=== PATIENT | male | born 1985 | race Caucasian/White ===

== ENCOUNTER 2021-09-18 12:20 | Emergency (ER) | payer SELFPAY ==
[~2021-09-18] VITALS: Ht 172 cm; Wt 86.0 kg
[~2021-09-18 12:20] MED LIST: CLIN-62 PO; CLIN150C20 PO; NFCHLORHGL MM
[2021-09-18] MEDS ORDERED: ACHD5005 PO (12:51)
[2021-09-18] MEDS ORDERED: DOXY100T2 PO (12:51)
--- NOTE | 2021-09-18 12:53 | ED Integumentary General ---
General Chief Complaint: Skin/Wound Problems Stated Complaint: L BUTTOCKS CYST Nursing Triage Note: PT ARRIVES TO ER WITH C/O L BUTTOCK ABSCESS. PT HAS NEVER HAD THIS BEFORE Source: patient Exam Limitations: no limitations History of Present Illness Date Seen by Provider: Sep 18, 2021 Time Seen by Provider: 12:52 Initial Comments To ER with a left buttock abscess for 3 to 4 days no fevers or chills. Timing/Duration: constant Severity: moderate Possible Cause: no cause identified Associated Symptoms: denies symptoms Allergies and Home Medications Allergies Coded Allergies: Penicillins (Unverified Allergy, Mild, UNKNOWN, 02/20/09) shellfish derived (Verified Allergy, Unknown, Shortness of Breath, 09/18/21) Patient Home Medication List Home Medication List Reviewed: Yes Chlorhexidine Gluconate (Chlorhexidine Gluconate) 473 Ml Mouthwash, 15 ML MM BID Prescribed by: ISMA SU on 07/02/18 035 Clindamycin HCl (Clindamycin HCl) 150 Mg Capsule, 450 MG PO TID Prescribed by: ISMA SU on 07/02/18351 Clindamycin Hcl (Cleocin Cap) 150 Mg Cap, 2 EACH PO QID Prescribed by: DARIEL BONILLA on 07/28/12 1752 Review of Systems Review of Systems Constitutional: see HPI EENTM: see HPI Respiratory: no symptoms reported Cardiovascular: no symptoms reported Genitourinary: no symptoms reported Musculoskeletal: no symptoms reported Skin: see HPI Psychiatric/Neurological: No Symptoms Reported Endocrine: No Symptoms Reported Hematologic/Lymphatic: No Symptoms Reported Past Blthmml-Cjvynz-Wfbzxc Hx Patient Social History Tobacco Use?: Yes Tobacco type used: Cigarettes Smoking Status: Current Everyday Smoker Substance use?: Yes Substance type: Marijuana Substance frequency: Couple times a week Alcohol Use?: Yes Alcohol type: Hard Liquor Alcohol Frequency: Once in a while Pt feels they are or have been: No Immunizations Up To Date Tetanus Booster (TDap): Unknown PED Vaccines UTD: Yes Influenza Vaccine Up-to-Date: No; Not Current First/Initial COVID19 Vaccinat: JUL 2021 Second COVID19 Vaccination Jose Roberto: AUGUST 2021 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: [employer] Seasonal Allergies Seasonal Allergies: No Past Medical History Surgeries: No Respiratory: No Cardiac: No Neurological: No Genitourinary: No Gastrointestinal: No Musculoskeletal: No Endocrine: No HEENT: No Cancer: No Psychosocial: No Integumentary: No Blood Disorders: No Physical Exam Vital Signs Vital Signs - First Documented 09/18/21 12:32 Temp 36.1 Pulse 98 Resp 18 B/P (MAP) 150/90 (110) Pulse Ox 98 O2 Delivery Room Air Capillary Refill : Less Than 3 Seconds General Appearance: WD/WN, no apparent distress Neck: non-tender, full range of motion Cardiovascular: regular rate, rhythm, no murmur Respiratory: normal breath sounds, no respiratory distress, no accessory muscle use Gastrointestinal: normal bowel sounds, non tender, soft Extremities: normal range of motion, non-tender Neurologic/Psychiatric: alert, normal mood/affect, oriented x 3 Skin: normal color, warm/dry, other (Large fluctuant abscess to the left side of the buttock. About 10 cm of erythema with the center of this about 4 cm of fluctuance. This was anesthetized with 1 mL of 1% lidocaine with epinephrine. Incision made with 11 blade scalpel about 1 cm in length. Large amount of purulent material was expressed. Cavity was then probed with a sterile Q-tip. Cavity was then irrigated with saline. Culture collected. Wound packed with quarter inch iodoform gauze and covered with plain gauze.) Skin Problem Character: abscess Progress/Results/Core Measures Results/Orders My Orders Orders - AYSE BRADEN APRN Wound Culture (09/18/21 12:47) Doxycycline Hyclate Tablet (Vibramycin T (09/18/21 13:00) Hydrocodone/Apap 5/325 Tablet (Lortab 5 (09/18/21 13:00) Vital Signs/I&O 09/18/21 12:32 Temp 36.1 Pulse 98 Resp 18 B/P (MAP) 150/90 (110) Pulse Ox 98 O2 Delivery Room Air Blood Pressure Mean: 110 Departure Impression Primary Impression: Abscess Disposition: 01 HOME, SELF-CARE Condition: Stable Departure-Patient Inst. Decision time for Depature: 12:48 Referrals: NO,LOCAL PHYSICIAN (PCP/Family) Primary Care Physician Patient Instructions: Abscess Incision and Drainage (DC) Add. Discharge Instructions: 1. You can shower and bathe. You can let water get on this. If the packing falls out on its own then simply leave it out. However, if it stays and then simply remove it by pulling on it sometime Monday morning. Change the gauze dressing overlying this as needed as it will continue to ooze blood and pus. Pain medication and antibiotic as directed. Return to ER for any concerns. All discharge instructions reviewed with patient and/or family. Voiced understanding. Scripts Hydrocodone/Acetaminophen (Hydrocodone-Acetamin 5-325 mg) 1 Each Tablet 1 TAB PO Q4H PRN for PAIN-MODERATE (5-7), #14 TAB Prov: AYSE BRADEN APRN 09/18/21 Doxycycline Hyclate (Doxycycline Hyclate) 100 Mg Tablet 100 MG PO BID, #20 TAB 0 Refills Prov: AYSE BRADEN APRN 09/18/21 Work/School Note: Work Release Form Date Seen in the Emergency Department: Sep 18, 2021 Return to Work: Sep 20, 2021 AYSE BRADEN APRN Sep 18, 2021 12:53
[2021-09-18] MEDS ORDERED: HYDROcodone/APAP 5 MG/325 MG (LORTAB) TAB PO ONE (13:00)
[2021-09-18] MEDS ORDERED: DOXYCYCLINE 100 MG (VIBRAMYCIN) TABLET PO SCH (13:00)
[2021-09-18 13:27] VITALS: BP 147/87
== END 2021-09-18 13:28 | disposition home or self-care (01) ==
LOC: EDUNIT# 12:20 → ER 12:22
DX: L02.31 Cutaneous abscess of buttock (principal); F17.210 Nicotine dependence, cigarettes, uncomplicated
CPT/HCPCS: 10061; 87070; 87077; 87205